=== PATIENT | male | born 1945 | race Caucasian/White ===

== ENCOUNTER 2018-01-10 20:56 | Emergency (ER) | payer MEDICARE, BC ==
[2018-01-10 21:31] LABS: #Basophils 0.1 thou/uL (0.0-0.2); #Lymphocytes 0.8 thou/uL (1.20-3.40); #Monocytes 0.8 thou/uL (0.11-0.59); #Neutrophils 10.5 thou/uL (1.40-6.50); %Basophils 0.6 % (0.0-1.0); %Eosinophils 0.3 % (0.0-10.0); %Lymphocytes 6.4 % (21.0-51.0); %Monocytes 6.7 % (0.0-10.0); %Neutrophils 86.1 % (42.0-75.0); Mean Corpuscular HGB CONC 34.8 g/dL (32.0-36.0); Mean Corpuscular Hemoglobin 29.4 pg (27.0-31.0); Mean Corpuscular Volume 84.6 fl (80.0-94.0); Mean Platelet Volume 6.5 fL (7.4-10.4); Platelet Count 278 thou/uL (130-400); RBC Distribution Width 11.2 % (11.5-14.5); Red Blood Cell (RBC) Count 5.11 mill/uL (4.70-6.10); White Blood Cell (WBC) Count 12.2 thou/uL (4.8-10.8)
[2018-01-10] MEDS ORDERED: Morphine 10 MG/ML VIAL ONE ×2 (21:31→22:54)
[2018-01-10 21:45] LABS: ALT (SGPT) 14 U/L (8-55); AST (SGOT) 17 U/L (5-34); Albumin 4.4 g/dL (3.4-4.8); Alkaline Phosphatase 98 U/L (40-150); Anion Gap 14 mmol/L (10-20); BUN (Urea Nitrogen) 20 mg/dL (8.4-25.7); Bilirubin, Total 0.5 mg/dL (0.2-1.2); Calc. Creatinine Clearance 0 mL/min (70-130); Calcium 9.3 mg/dL (7.8-10.44); Carbon Dioxide 23 mmol/L (23-31); Chloride 106 mmol/L (98-107); Estimated GFR-MDRD 50; Globulin 3.2 g/dL (2.4-3.5); Glucose 158 mg/dL (83-110); Potassium 3.6 mmol/L (3.5-5.1); Protein, Total 7.6 g/dL (5.8-8.1); Sodium 139 mmol/L (136-145)
[2018-01-10 22:08] LABS: Lipase 28 U/L (8-78)
--- NOTE | 2018-01-10 22:10 | CT ---
ABDOMEN CT WITHOUT CONTRAST: PELVIS CT WITHOUT CONTRAST: HISTORY: Right-sided abdominal pain. Symptoms x12 hours. The patient has a history of renal calculi. COMPARISON: 09/26/2006 TECHNIQUE: An abdomen and pelvis CT is performed without IV or oral contrast. Coronal reformatted images are barrett bmitted for interpretation. FINDINGS: There are dependent atelectatic changes in the lung bases. Heart size is within normal limits. No s ignificant pericardial fluid. The visualized aorta has an overall normal caliber. There is mild ath erosclerosis. No gastrohepatic, retrocrural, or periportal lymphadenopathy. There is nonspecific fluid in the right pericolic gutter. There is nonspecific bilateral perinephric fat stranding. The gallbladder is unremarkable. Limited evaluation of the solid organs by lack of IV contrast. Grossly, no solid organ abnormality. Limited evaluation of the alimentary canal due to lack of oral contrast. No evidence of bowel obstru ction. The ileocecal junction is normal. Fecalization of the terminal ileum, likely due to an incomp etent ileocecal valve rather than obstruction. Normal caliber appendix. Scattered fecal material in a nondistended, nondilated colon. There is evidence of colonic diverticulosis, without evidence of diverticulitis. There is a staghorn calculus in the lower pole of the left knee, without associated obstructive uropa thy. There is scarring and thinning of the mid left renal cortex. No evidence of left-sided obstruc tive uropathy. There is moderate dilatation of the right intrarenal collecting system, proximal righ t ureter, secondary to a calculus in the mid portion of the ureter, measuring 7 mm in craniocaudal di mension. Punctate nonobstructing calcification is noted in the right renal pelvis. Distal to the af orementioned 7 mm calculus, the right ureter is decompressed. PELVIS: No mass, lymphadenopathy, free air, or free fluid. No calcifications within the urinary klarissa dder. There are degenerative changes in the lumbar spine. IMPRESSION: 1. Moderate right-sided obstructive uropathy secondary to a calculus in the proximal to mid right ur eter. 2. Nonobstructing staghorn calculus in the left intrarenal collecting system. 3. Normal caliber appendix. POS: [facility]
[2018-01-10] MEDS ORDERED: Ketorolac Tromethamine 30 MG/ML VIAL ONE (22:17)
[2018-01-10 22:21] LABS: Bilirubin Negative (Negative); Blood, Urine Large (Negative); Clarity Clear (Clear); Glucose, Urine (Dipstick) Negative (Negative); Leukocyte Negative (Negative); Nitrite Negative (Negative); Protein, Urine (Dipstick) 100 mg/dL (Neg-Trace); Urobilinogen 0.2 mg/dL (0.2-1.0); pH, Urine 7.5 (5.0-9.0)
[2018-01-10 22:25] LABS: Bacteria/HPF None Seen HPF (None Seen); Hyaline Casts/LPF 0-3 HYALINE CAST LPF (0-3 Hyaline); RBC/HPF 21-50 HPF (0-3); Squamous Epithelial 0-3 HPF (0-3); WBC/HPF 0-3 HPF (0-3)
[2018-01-10] MEDS ORDERED: Ondansetron HCl/PF 4 MG/2 ML Vial ONE (22:54)
== END 2018-01-10 23:46 | disposition home or self-care (01) ==
LOC: SCSER 20:56
DX: N20.2 Calculus of kidney with calculus of ureter (principal); I10 Essential (primary) hypertension; Z79.899 Other long term (current) drug therapy
CPT/HCPCS: 74176; 80053; 81003; 81015; 83605; 83690; 85025; 96361; 96374; 96375; 96376; J1885; J2270; J2405

== ENCOUNTER 2018-01-12 11:39 | Emergency (ER) | payer MEDICARE, BC ==
[2018-01-12] MEDS ORDERED: Ketorolac Tromethamine 30 MG/ML VIAL ONE (12:25)
[2018-01-12 12:39] LABS: Bilirubin Negative (Negative); Blood, Urine Moderate (Negative); Clarity Clear (Clear); Glucose, Urine (Dipstick) Negative (Negative); Leukocyte Negative (Negative); Nitrite Negative (Negative); Protein, Urine (Dipstick) Negative (Neg-Trace); Specific Gravity, Urine 1.015 (1.005-1.030); Urobilinogen 0.2 mg/dL (0.2-1.0)
[2018-01-12 12:49] LABS: Bacteria/HPF None Seen HPF (None Seen); Squamous Epithelial None Seen HPF (0-3); WBC/HPF 0-3 HPF (0-3)
== END 2018-01-12 13:05 | disposition home or self-care (01) ==
LOC: SCSER 11:39
DX: N13.2 Hydronephrosis with renal and ureteral calculous obstruction (principal); I10 Essential (primary) hypertension; Z79.899 Other long term (current) drug therapy; Z79.891 Long term (current) use of opiate analgesic
CPT/HCPCS: 81003; 81015; 96361; 96374; 96375; J1885

== ENCOUNTER 2018-01-20 16:21 | Outpatient (CLI) | payer MEDICARE, BC ==
[2018-01-20 17:23] LABS: Hemoglobin 14.1 g/dL (14.0-18.0); Mean Corpuscular HGB CONC 34.1 g/dL (32.0-36.0); Mean Corpuscular Hemoglobin 30.3 pg (27.0-31.0); Mean Corpuscular Volume 88.8 fl (80.0-94.0); Platelet Count 356 thou/uL (130-400); RBC Distribution Width 11.7 % (11.5-14.5); Red Blood Cell (RBC) Count 4.65 mill/uL (4.70-6.10); White Blood Cell (WBC) Count 7.1 thou/uL (4.8-10.8)
--- NOTE | 2018-01-20 17:27 | RAD ---
KUB: 01/20/18 HISTORY: 72-year-old male for preoperative evaluation. FINDINGS: Noncontrast abdomen CT scan demonstrates an approximately 1.2 cm diameter irregular left renal calcul us with probably very small right renal calculi. The patient had a documented right ureteral stone at the time of the prior CT. At that time it was at approximately the L5 transverse process level. I cannot definitely locate it at that location today. There is an oval density measuring approximately 0.4 x 0.6 cm overlying the right sacral ala region which could represent this calculus. IMPRESSION: Large irregular left renal calculus with smaller left renal calculi and probable small right renal ca lculus. The previously noted right ureteral calculus may overlie the lateral right sacrum at the leve l of the upper pelvis. POS: [facility]
[2018-01-20 17:30] LABS: INR-International Normal Ratio 1.1; Prothrombin Time 14.7 SEC (12.0-14.7)
[2018-01-20 17:45] LABS: Anion Gap 11 mmol/L (10-20); BUN (Urea Nitrogen) 23 mg/dL (8.4-25.7); Calc. Creatinine Clearance 0 mL/min (70-130); Calcium 9.6 mg/dL (7.8-10.44); Carbon Dioxide 25 mmol/L (23-31); Chloride 107 mmol/L (98-107); Estimated GFR-MDRD 72; Glucose 95 mg/dL (83-110); Potassium 3.6 mmol/L (3.5-5.1); Sodium 139 mmol/L (136-145)
[2018-01-20 17:55] LABS: Bilirubin Negative (Negative); Blood, Urine Large (Negative); Clarity CLEAR (Clear); Glucose, Urine (Dipstick) Negative (Negative); Leukocyte Trace (Negative); Nitrite Negative (Negative); Protein, Urine (Dipstick) Negative (Neg-Trace); Specific Gravity, Urine 1.019 (1.002-1.036); Urobilinogen 0.2 mg/dL (0.2-1.0)
[2018-01-20 18:02] LABS: Bacteria/HPF None Seen HPF (None Seen); Hyaline Casts/LPF 0-3 HYALINE CAST LPF (0-3 Hyaline); Pathc Cast-AUWi Flag 0.14 (0-2.49); RBC/HPF 21-50 HPF (0-3); Squamous Epithelial None Seen HPF (0-3)
--- NOTE | 2018-01-23 08:50 | EKG ---
Test Reason : Blood Pressure : / mmHG Vent. Rate : 062 BPM Atrial Rate : 062 BPM P-R Int : 148 ms QRS Dur : 078 ms QT Int : 402 ms P-R-T Axes : 037 -15 -10 degrees QTc Int : 408 ms Normal sinus rhythm Voltage criteria for left ventricular hypertrophy Abnormal ECG No previous ECGs available Confirmed by DENNIS FOWLER MD ([id number]) on 01/23/2018 8:50:06 AM Referred By: GUNNER Confirmed By:DENNIS FOWLER MD
== END 2018-01-20 16:22 | disposition home or self-care (01) ==
LOC: LABBT 16:21
PROVIDERS: ATTEND Urology
DX: Z01.818 Encounter for other preprocedural examination (principal); N20.0 Calculus of kidney
CPT/HCPCS: 74018; 80048; 81001; 85027; 85610; 85730; 87086; 93005; 93010

== ENCOUNTER 2018-01-27 06:31 | Day surgery (SDC) | payer MEDICARE, BC ==
[2018-01-20 17:06] VITALS: BMI 28.3
[2018-01-27] MEDS ORDERED: Levofloxacin 500 mg/D5W 100 ml Premix Bag ONE (06:55)
[2018-01-27] MEDS ORDERED: Iothalamate Meglumine 60% 50 ML VIAL FS ONE (06:57)
[2018-01-27] MEDS ORDERED: Midazolam HCl 2 mg/2 ml Vial ONE (07:31)
[2018-01-27] MEDS ORDERED: Fentanyl 100 MCG/2 ML VIAL ONE ×3 (07:31→08:01)
--- NOTE | 2018-01-27 08:37 | RAD ---
ABDOMEN 1 VIEW: HISTORY: Renal stones. COMPARISON: 01/20/18. FINDINGS: A large amount of stool throughout the colon partially obscures the urinary system. There are degene rative changes in the lumbar spine. Multiple calcifications projecting over the left renal shadow, measuring up to 1.2 cm, are unchanged in appearance. Oval calcification, 0.6 cm, over the distal right ureter is also unchanged in positio n. It overlies the lower lateral margin of the right side of the sacrum. Other findings are stable. IMPRESSION: Renal and right ureteral calculi appear unchanged. POS: [facility]
[2018-01-27] MEDS ORDERED: B & O ONE (09:50)
--- NOTE | 2018-01-27 11:17 | OP ---
DATE OF PROCEDURE: 01/27/2018 SERVICE: Urology. SURGEON: Dao Andujar M.D. PREOPERATIVE DIAGNOSIS: Left renal and right ureteral stone. POSTOPERATIVE DIAGNOSIS: Left renal and right ureteral stone. PROCEDURES PERFORMED: Bilateral ureteroscopy, laser lithotripsy, basket extraction of stone, placeme nt of bilateral 6 x 26 double-J stent. INDICATIONS FOR PROCEDURE: Mr. Ledbetter is a 72-year-old white male who initially states that he had ri ght flank pain. He felt that he had passed his right-sided ureteral stone, but had a large left ston e. He had never actually confirmed passage of the right-sided stone, but said he was not hurting any more. The stone on the left was very large, almost 2 cm. We got a KUB which demonstrated that he st ill had the right distal ureteral stone in the left renal stone. I recommended ureteroscopy for silvina rizwan of both of the stones in the same setting. Risks and benefits of surgery were discussed and he h as agreed to proceed forward. DESCRIPTION OF PROCEDURE: After identification of armband and verification of consent, the patient w as brought back to the operating room and given general anesthesia with endotracheal intubation. He was then placed in dorsal lithotomy position, prepped and draped in usual sterile fashion. After cele ropriate timeout, a lubricated 22 Upper Sorbian rigid cystoscope was introduced per urethra into the bladder . Attention was turned to the right ureteral orifice which was cannulated with a 0.035 sensor wire u p to the level of the renal pelvis. The cystoscope was then removed and a semirigid ureteroscope bro ught in alongside the sensor wire into the distal ureter where the stone was encountered. Attempts t o basket the stone were unsuccessful as the stone was too large. Therefore, the laser fiber was used to fragment the stone into smaller pieces and then the fragments basketed out. Upon completion, the re were no additional stone fragments within the right ureter. The ureteroscope was withdrawn and th e cystoscope backloaded the sensor wire back into the bladder. A 6 x 26 double-J stent was advanced over the sensor wire up to the level of renal pelvis and the wire removed leaving a good curl in the pelvis and good curl in the bladder. The bladder was then emptied and then refilled and attention to the left ureteral orifice which was cannulated with same 0.035 sensor wire up to the level of the re nal pelvis. The cystoscope was then removed after draining the bladder and a dual-lumen catheter was advanced over the sensor wire up to the level of the mid ureter. An Amplatz Super Stiff wire was th en passed through the second lumen of the dual-lumen catheter up to the level of renal pelvis. The d ual lumen was then removed and the sensor wire secured to the drapes as a safety wire. An 11/13 x 46 cm ureteral access sheath was advanced over the Super Stiff wire to the level of the proximal ureter . Inner cannula and Super Stiff wire were then removed leaving the outer sheath and the sensor wire in place as a safety wire. A flexible digital ureteroscope was then passed through the ureteral acce ss sheath up into the renal pelvis where the stone was encountered. There was one additional smaller stones noted in a different yumiko which was able to be basketed by itself. The stone was fragmented with a 200 micron laser fiber into small pieces. The larger pieces were basketed out with a 1.9 Markell nch 0 tip nitinol basket. Upon completion, all the larger stone fragments had been removed and the o nly thing left was dust. There was actually relatively large fragment which was embedded into the re nal pelvis wall that could not be removed. Attempts to laser the stone out of the wall was unsuccess ful as the angle of the ureteroscope entering the yumiko was not sufficient to adequately point the la ser onto the stone. There began to be damage to the renal yumiko and the sidewall. Therefore, I felt it would be best to abort and leave the stone in situ. The fragment is radiopaque on x-ray and ther efore this may be amenable to shock wave lithotripsy at a later date. Therefore, after checking all calices for any residual fragments and none were encountered, pullback ureteroscopy was employed and there were no additional fragments seen within the ureter. The cystoscope was then backloaded over t he sensor wire back into the bladder and a 6 x 26 double-J stent advanced over the sensor wire up to the level of the renal pelvis. The sensor wire was then removed leaving a good curl in the renal pel vis and good curl in the bladder. The bladder was then emptied and cystoscope removed. A 16-A B&O s uppository was placed in the patient's rectum and then the patient was taken out of lithotomy, awaken ed and taken to PACU for recovery in stable condition. COMPLICATIONS: None. ESTIMATED BLOOD LOSS: Minimal. RETAINED TUBES AND DRAINS: Bilateral 6 x 26 double-J stents. SPECIMENS: Stone for stone analysis. DISPOSITION: Patient will be discharged home. He will follow up with me as an outpatient for stone removal, at which time then we can discuss shock wave lithotripsy for the remaining fragment in the l eft kidney.
[2018-01-27] MEDS ORDERED: HYDROcodone/Acetaminophen 5/325 mg Tablet ONE (12:57)
[2018-01-27] MEDS ORDERED: PROPOFOL 200 MG/20 ML VIAL ONE (13:24)
[2018-01-27] MEDS ORDERED: Ketorolac Tromethamine 30 MG/ML VIAL ONE (13:24)
[2018-01-27] MEDS ORDERED: Lidocaine 1% PF 5 ML VIAL ONE (13:24)
== END 2018-01-27 13:20 | disposition home or self-care (01) ==
LOC: SDC 06:31
PROVIDERS: ATTEND Urology
PROC: 0TF48ZZ Fragmentation in Left Kidney Pelvis, Via Natural or Artificial Opening Endoscopic (ICD-10-PCS; principal; 2018-01-27)
PROC: 0T788DZ Dilation of Bilateral Ureters with Intraluminal Device, Via Natural or Artificial Opening Endoscopic (ICD-10-PCS; 2018-01-27)
DX: N20.2 Calculus of kidney with calculus of ureter (principal); I12.9 Hypertensive chronic kidney disease with stage 1 through stage 4 chronic kidney disease, or unspecified chronic kidney disease; N18.9 Chronic kidney disease, unspecified; N40.0 Benign prostatic hyperplasia without lower urinary tract symptoms; Z79.82 Long term (current) use of aspirin; Z79.899 Other long term (current) drug therapy; Z98.890 Other specified postprocedural states
CPT/HCPCS: 52356; 74018; 76001; 82365; 88300; C1769; J1885; J1956; J2001; J2250; J2704; J3010; Q9961

== ENCOUNTER 2018-03-24 09:36 | Outpatient (CLI) | payer MEDICARE, BC ==
--- NOTE | 2018-03-24 11:33 | ULT ---
RENAL SONOGRAM: Date: 03-24-18 History: Renal stone. Comparison: Noncontrast CT abdomen 01-10-18. FINDINGS: Right kidney measures 12 cm x 5.6 cm. There is a small anechoic cystic structure seen within the supe rior pole right kidney measuring 1.2 cm which demonstrates sonographic characteristics most compatibl e with a cyst. The right kidney otherwise has a normal sonographic appearance without evidence of a s olid renal mass, renal calculus, or hydronephrosis. Hydronephrosis noted on prior study on 01-10-18 has resolved. The right renal calculi on prior study are not visualized on this exam, but these calculi were very small in size on prior study. The left kidney measures 12.2 cm x 5.2 cm. There is a shadowing echogenic focus seen within the infer ior pole left kidney measures 0.8 cm, which likely corresponds to nonobstructing left renal calculi n oted on prior CT exam. No hydronephrosis, renal mass, or perinephric fluid collection is seen on the left. Urinary bladder is incompletely distended but otherwise grossly normal in appearance. IMPRESSION: 1. Small right renal cyst. 2. Nonobstructing inferior pole left renal calculi. 3. Resolution of right sided hydronephrosis. POS: [facility]
== END 2018-03-24 09:37 | disposition home or self-care (01) ==
LOC: ULT 09:36
PROVIDERS: ATTEND Urology
DX: N20.0 Calculus of kidney (principal); N28.1 Cyst of kidney, acquired; N13.30 Unspecified hydronephrosis
CPT/HCPCS: 76770

== ENCOUNTER 2019-07-10 10:58 | Outpatient (CLI) | payer MEDICARE, BC ==
--- NOTE | 2019-07-10 11:30 | RAD ---
EXAM: XR Abdomen 1 View/KUB PROVIDED CLINICAL HISTORY: Renal stone. COMPARISON: 01/27/2018. FINDINGS: Calcifications are again seen overlying the inferior pole left renal shadow. The largest calculus ove rlying the inferior pole left renal shadow is smaller in size. Findings may be related to interval treatment. A few tiny calcifications are seen overlying the expected location of the inferior pole ri ght renal shadow, but this is difficult to further evaluate as there are loops of bowel overlying this region. Bowel gas pattern is nonspecific. Degenerative changes again seen spine. No other interval change. IMPRESSION: Left nephrolithiasis. Largest calcification inferior pole left kidney is smaller in size. Probable pu nctate calculus overlying the inferior pole right renal shadow. Calculi were seen in this region on prior CT abdomen on 01/10/2018.
== END 2019-07-10 10:59 | disposition home or self-care (01) ==
LOC: RAD 10:58
PROVIDERS: ATTEND Urology
DX: N20.0 Calculus of kidney (principal); N28.89 Other specified disorders of kidney and ureter
CPT/HCPCS: 74018

== ENCOUNTER 2019-12-04 07:36 | Outpatient (CLI) | payer MEDICARE, BC ==
--- NOTE | 2019-12-04 09:18 | MRI ---
MRI LUMBAR SPINE WITHOUT CONTRAST: HISTORY: Spinal stenosis with radiculopathy. COMPARISON: Spine radiograph from 2014 for reference. FINDINGS: The aorta is mildly tortuous without aneurysmal dilatation. No retroperitoneal or periaortic adenopa thy. T2 hyperintense foci in both kidneys, likely cysts. Paraspinal musculature is symmetric. No marrow infiltrative process. Inferior end plate Schmorl's n ode at L4 as well as superior end plate of Schmorl's node also at L4. Type I Modic changes at L4-L5. There is no acute fracture of the lumbar spine. There is narrowing at the interspinous space through out the lumbar spine at L1-L5 with adventitial bursa formation at L3-4 to the spinous processes. 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 Moderate hypertrophic facet arthrosis. There is moderate to samaria re right and moderate left neural foraminal narrowing. There is effacement of the ventral CSF space with the spinal canal now measuring 6 mm. L2-3: Circumferential disk-osteophyte complex. Moderate facet arthrosis. There is moderate right a nd moderate to severe left neural foraminal narrowing with abutment of both traversing nerve roots an d left exiting nerve root. The spinal canal is narrowed to approximately 5 mm. L3-4: Severe facet arthrosis with large osteophyte formation as well as facet joint effusions. High -grade ligamentum flavum hypertrophy. There is a 2 mm anterolisthesis. Posterior displacement of di sk material as an adaptation for subluxation. Spinal canal measures 4 mm, highly narrowed. There is severe bilateral neural foraminal narrowing with abutment of both exiting and traversing nerve roots . L4-5: Circumferential disk-osteophyte complex. Severe hypertrophic facet arthrosis. High-grade lig amentum flavum hypertrophy. There is severe neural foraminal narrowing bilaterally with impingement upon the exiting nerve roots and abutment of both traversing nerve roots. Spinal canal measures 4 mm . L5-S1: Large disk-osteophyte complex. High-grade facet arthrosis. Severe bilateral neural foramina l narrowing with impingement upon exiting nerve roots and abutment of both traversing nerve roots. IMPRESSION: 1. High-grade multilevel neural foraminal and spinal canal narrowing due to a combination of disk-os teophyte complexes, ligamentum flavum hypertrophy, facet arthrosis, and congenitally foreshortened pe dicles. 2. Narrowing interspinous spaces of the lumbar spine with adventitial bursal formation at L3-L4. POS: [facility]
== END 2019-12-04 07:37 | disposition home or self-care (01) ==
LOC: BICMRI 07:36
PROVIDERS: ATTEND Anesthesiology
DX: M47.26 Other spondylosis with radiculopathy, lumbar region (principal); M48.061 Spinal stenosis, lumbar region without neurogenic claudication; M47.16 Other spondylosis with myelopathy, lumbar region
CPT/HCPCS: 72148

== ENCOUNTER 2020-02-15 06:31 | Outpatient (CLI) | payer MEDICARE, BC, OTHER ==
[2020-02-15 17:25] LABS: Hemoglobin 15.8 g/dL (14.0-18.0); Mean Corpuscular HGB CONC 34.8 g/dL (32.0-36.0); Mean Corpuscular Hemoglobin 31.5 pg (27.0-31.0); Mean Corpuscular Volume 90.6 fL (78.0-98.0); Mean Platelet Volume 6.2 fL (7.4-10.4); Platelet Count 344 thou/uL (130-400); RBC Distribution Width 12.2 % (11.5-14.5); Red Blood Cell (RBC) Count 5.01 mill/uL (4.70-6.10)
[2020-02-15 17:47] LABS: Anion Gap 15 mmol/L (10-20); BUN (Urea Nitrogen) 26 mg/dL (8.4-25.7); Calc. Creatinine Clearance 0 mL/min (70-130); Calcium 9.9 mg/dL (7.8-10.44); Carbon Dioxide 28 mmol/L (23-31); Chloride 100 mmol/L (98-107); Estimated GFR-MDRD 57; Glucose 102 mg/dL (83-110); Sodium 140 mmol/L (136-145)
[2020-02-15 17:52] LABS: Potassium 2.9 mmol/L (3.5-5.1)
== END 2020-02-15 06:32 | disposition home or self-care (01) ==
LOC: LABBT 06:31
PROVIDERS: ATTEND Neurological Surgery
DX: Z01.818 Encounter for other preprocedural examination (principal); M43.16 Spondylolisthesis, lumbar region
CPT/HCPCS: 80048; 85027; 93005; 93010

== ENCOUNTER 2020-02-20 07:07 | Day surgery (SDC) | payer MEDICARE, BC ==
[2020-02-15 16:26] VITALS: BMI 27.1
[2020-02-20 08:23] LABS: Anion Gap 15 mmol/L (10-20); BUN (Urea Nitrogen) 23 mg/dL (8.4-25.7); Calc. Creatinine Clearance 72 mL/min (70-130); Calcium 9.4 mg/dL (7.8-10.44); Carbon Dioxide 24 mmol/L (23-31); Chloride 105 mmol/L (98-107); Estimated GFR-MDRD 64; Glucose 106 mg/dL (83-110); Potassium 3.2 mmol/L (3.5-5.1); Sodium 141 mmol/L (136-145)
[2020-02-20] MEDS ORDERED: Fentanyl 250 MCG/5 ML VIAL ONE (09:50)
[2020-02-20] MEDS ORDERED: Fentanyl 100 MCG/2 ML VIAL ONE ×3 (11:42→13:26)
[2020-02-20] MEDS ORDERED: HYDROmorphone 2 MG/ML VIAL ONE (12:01)
[2020-02-20] MEDS ORDERED: Tamsulosin HCl 0.4 MG CAP ONE (12:01)
[2020-02-20] MEDS ORDERED: Rocuronium Bromide 10 MG/ML (10ML VIAL) ONE (12:22)
[2020-02-20] MEDS ORDERED: PROPOFOL 200 MG/20 ML VIAL ONE (12:22)
[2020-02-20] MEDS ORDERED: Ketorolac Tromethamine 30 MG/ML VIAL ONE (12:22)
[2020-02-20] MEDS ORDERED: Ondansetron PF 4 MG/2 ML Vial ONE (12:22)
[2020-02-20] MEDS ORDERED: Dexamethasone 20 MG/5 ML VIAL ONE (12:22)
[2020-02-20] MEDS ORDERED: tiZANidine HCl 4 MG TAB ONE (12:59)
[2020-02-20] MEDS ORDERED: HYDROcodone/Acetaminophen 10/325 mg Tablet ONE (14:45)
--- NOTE | 2020-02-20 19:02 | OP ---
DATE OF PROCEDURE: 02/20/2020 TELEPHOTO ENGINEER: Marce Deluca PA-C. PROCEDURES PERFORMED: L3-L4 laminectomy, posterolateral arthrodesis, demineralized bone matrix, local morselized autograft, pedicle screw instrumentation at L3-L4. DESCRIPTION OF PROCEDURE: The patient was brought to the operating room and intubated. He was rolled in a prone position on gel-filled chest rolls. An incision was made exposing L3 and L4 and the level was confirmed by x-ray. We performed complete L4 and inferior L3 laminectomy, completely decompressing the L3-L4 interspace. Next, pedicle screws were placed at right L3 and right L4 using lateral fluoroscopic guidance. These were connected by rods and secured by nuts which were finally tightened. The wound was then extensively irrigated and MAC hemostasis was secured. A combination of demineralized bone matrix and local morselized autograft was laid over the lamina and posterolateral surfaces for the purpose of arthrodesis. Vancomycin powder was applied and the wound was then closed in anatomic layers. Job ID: [id number]
== END 2020-02-20 16:20 | disposition home or self-care (01) ==
LOC: SDC 07:07
PROVIDERS: ATTEND Neurological Surgery
PROC: 0SG0071 Fusion of Lumbar Vertebral Joint with Autologous Tissue Substitute, Posterior Approach, Posterior Column, Open Approach (ICD-10-PCS; principal; 2020-02-20)
DX: M43.16 Spondylolisthesis, lumbar region (principal); M48.062 Spinal stenosis, lumbar region with neurogenic claudication; I12.9 Hypertensive chronic kidney disease with stage 1 through stage 4 chronic kidney disease, or unspecified chronic kidney disease; N18.9 Chronic kidney disease, unspecified; N40.0 Benign prostatic hyperplasia without lower urinary tract symptoms; N52.9 Male erectile dysfunction, unspecified; Z79.899 Other long term (current) drug therapy
CPT/HCPCS: 20930; 20936; 22612; 22840; 76000; 80048; C1713 ×2; C1768; 36415; J0690; J1100; J1170; J1885; J2405; J2704; J3010; J3370

== ENCOUNTER 2020-03-07 12:44 | Outpatient (CLI) | payer MEDICARE, BC ==
--- NOTE | 2020-03-07 13:21 | RAD ---
EXAM: XR Lumbar Spine 2 Or 3 View PROVIDED CLINICAL HISTORY: Lumbar spondylolisthesis. Two-week follow-up evaluation after surgery. COMPARISON: 06/28/2014. FINDINGS: Postoperative changes related to posterior fusion at the L3-4 level are noted. Unilateral right-sided pedicular screws with posterior interlocking marialuisa are noted to transfix this level. Laminectomy defect is present at this level. Grade 1 anterolisthesis of L3 on L4 is present. There is narrowing o f the intervertebral disc spaces at all levels of the lumbar spine greatest at the L4-5 and L5-S1 levels. Facet degenerative change are seen in the lower lumbar spine with scattered osteophytes throu ghout the spine. The vertebral body heights are within normal limits. No fracture or additional level of subluxation is seen. Vascular calcifications are again seen in the abdominal aorta. IMPRESSION: 1. Interval postoperative changes related to posterior fusion at the L3-4 level. 2. Multilevel degenerative changes lumbar spine.
== END 2020-03-07 12:45 | disposition home or self-care (01) ==
LOC: TBSIIMAG 12:44
PROVIDERS: ATTEND Neurological Surgery
DX: M43.16 Spondylolisthesis, lumbar region (principal); M47.816 Spondylosis without myelopathy or radiculopathy, lumbar region; Z98.1 Arthrodesis status
CPT/HCPCS: 72100

== ENCOUNTER 2020-05-01 13:59 | Outpatient (CLI) | payer MEDICARE, BC ==
--- NOTE | 2020-05-01 14:14 | RAD ---
XR Lumbar Spine 2 Or 3 View: 05/01/2020 12:00 AM Postoperative lumbar spine COMPARISON: March 07, 2020 FINDINGS: Fracture: None. Alignment: The anterior translation of L3 on L4 is stable. The right-sided pedicular screws and inter connecting marialuisa at L3-4 is stable. Degenerative Change: The moderate multilevel disc degenerative disease most pronounced at L4-5 and L 5-S1 is similar. Facet osteoarthritic changes stable. Bone Mineralization:Normal Soft tissues: No acute abnormality. IMPRESSION: Stable postoperative lumbar spine
== END 2020-05-01 14:00 | disposition home or self-care (01) ==
LOC: TBSIIMAG 13:59
PROVIDERS: ATTEND Neurological Surgery
DX: M43.16 Spondylolisthesis, lumbar region (principal); Z98.890 Other specified postprocedural states
CPT/HCPCS: 72100

== ENCOUNTER 2020-08-01 10:21 | Outpatient (CLI) | payer MEDICARE, BC ==
--- NOTE | 2020-08-01 11:22 | RAD ---
KUB (3 images total) INDICATION: History of renal stones COMPARISON: Prior exam dated July 10, 2019 FINDINGS: Bowel gas: Nonspecific but without overt appearance of obstruction. Lung bases: Clear. Additional findings: Bilateral nephrolithiasis is stable. There is a stable 8.8 mm stone involving th e inferior pole left kidney. There is a 6 mm calculus involving inferior pole left kidney which is stable. There is a 3.4 mm calculus involving the left mid kidney that is stable. There is a 5 mm line ar calcification involving the superior pole right kidney which is stable and related to a vascular calcification. There is a stable 2.3 mm stone overlying the mid to lower right kidney. Osseous structures: There is postsurgical change of a right L3-4 interbody fusion. There are laminect chrystal changes at L3-4. There is a bone within the left femoral neck. IMPRESSION: 1. Stable bilateral nephrolithiasis
== END 2020-08-01 10:22 | disposition home or self-care (01) ==
LOC: RAD 10:21
PROVIDERS: ATTEND Family Medicine
DX: N20.0 Calculus of kidney (principal)
CPT/HCPCS: 74018

== ENCOUNTER 2021-08-06 10:12 | Outpatient (CLI) | payer MEDICARE, BC | END 2021-08-06 10:13 | disposition home or self-care (01) | LOC: RAD 10:12 | PROVIDERS: ATTEND Urology | DX: N20.0 Calculus of kidney (principal) | CPT/HCPCS: 74018 ==

== ENCOUNTER 2022-08-10 10:11 | Outpatient (CLI) | payer MEDICARE, BC | END 2022-08-10 10:12 | disposition home or self-care (01) | LOC: RAD 10:11 | PROVIDERS: ATTEND Urology | DX: N20.0 Calculus of kidney (principal) | CPT/HCPCS: 74018 ==

== ENCOUNTER 2023-10-06 10:24 | Outpatient (CLI) | payer BC, MEDICARE | END 2023-10-06 10:25 | disposition home or self-care (01) | LOC: RAD 10:24 | PROVIDERS: ATTEND Family Medicine | DX: N20.0 Calculus of kidney (principal); N28.89 Other specified disorders of kidney and ureter | CPT/HCPCS: 74018 ==

== ENCOUNTER 2024-03-20 15:05 | Outpatient (CLI) | payer MEDICARE | END 2024-03-20 15:06 | disposition home or self-care (01) | LOC: BICRAD 15:05 | PROVIDERS: ATTEND Urology | DX: N20.0 Calculus of kidney (principal); N28.89 Other specified disorders of kidney and ureter | CPT/HCPCS: 74018 ==